=== PATIENT | male | born 1990 | race Asian ===

== ENCOUNTER 2025-01-24 14:43 | Outpatient (AMB) | payer OTHER, SELFPAY ==
--- NOTE | 2025-01-24 15:56 | A.OFFVIS_ITS ---
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 EMG nerve conduction study in October of 2024 revealed mild bilateral median neuropathy across carpal tunnel. He was advised to pay attention to his habits and activities and use wrist splints at night to see if that would help. He said that wrist splints help in his hands for better. No new symptom. [facility] Medical History (Updated 01/24/25 @ 15:58 by Omaira Salmon MD) WPW (Xvsew-Wkozbijqr-Vkftg syndrome) Anxiety disorder Carpal tunnel syndrome Physical Exam Neuro Other: Mental Status: Alert and oriented to person, place, and time. Normal attention. Normal spontaneous speech, fluency, and comprehension. No obvious issues with mood and memory. Affect is appropriate. Cranial Nerves: CN II: Visual sanches full to confrontation, visual acuity intact. CN III, IV, : Pupils equal, round, reactive to light and accommodation. Extraocular movements are normal. CN V: Facial sensation is normal. CN VII: Facial movements symmetrical. CN VIII: Hearing intact to bedside conversation is normal. CN IX, X: Palate elevates symmetrically. CN XI: Shoulder shrug and head turn symmetrical. CN XII: Tongue midline without atrophy or fasciculations. Motor: Bulk and tone normal in all extremities. No significant muscle weakness in arms and legs. No drift. Reflexes: Deep tendon reflexes 2+ and symmetric. Plantar response down-going bilaterally. Coordination: Ndgkiq-wv-mjqb and rjcb-vu-yibe testing normal. No dysmetria. Gait and Station: No obvious gait abnormality. No ataxia or instability. Sensory: Intact to light touch, pinprick, and vibration. Romberg is negative. Extrapyramidal: Full facial expressions and blinking. No rigidity. Movements are appropriate with no tremor or abnormality. Speech: Normal; no dysarthria or tremor. Assessment & Plan Assessment & Plan (1) Carpal tunnel syndrome: Comment: NCV/EMG UE (in office) Mild bilateral median neuropathy across the Carpal tunnel. 11/10/24 Code(s): G56.00 - Carpal tunnel syndrome, unspecified upper limb Category: Medical Qualifiers: Laterality: bilateral Qualified Code(s): G56.03 - Carpal tunnel syndrome, bilateral upper limbs Plan As his symptoms were better with use of wrist splints, no further intervention was done. He was educated about carpal tunnel syndrome. Coding Level of Care Code Est Pt Level 3 (03131) Diagnoses Bilateral carpal tunnel syndrome G56.03 Laterality: bilateral
== END 2025-01-24 16:06 | disposition home or self-care (01) ==
LOC: HO.HSM 14:44
PROVIDERS: PCP Internal Medicine; Visit Provider Psychiatry & Neurology Neurology
DX: G56.03 Carpal tunnel syndrome, bilateral upper limbs (principal)
CPT/HCPCS: 99213